=== PATIENT | female | born 1995 | race African-American/Black ===

== ENCOUNTER 2017-08-18 22:28 | Emergency (ER) | payer BC ==
[~2017-08-18] VITALS: Ht 167.6 cm; Wt 82.0 kg
[2017-08-18] MEDS ORDERED: ONDANSETRON HCL 4MG/2ML VIAL IV STA (23:00)
[2017-08-18] MEDS ORDERED: SODIUM CHLORIDE 0.9% 1,000 ML IV ONE (23:00)
[2017-08-18] MEDS ORDERED: KETOROLAC 30MG/ML VIAL IV STA (23:00)
[2017-08-18 23:38] LABS: EOSINOPHILS % 2.3 % (0.0-5.0); HEMATOCRIT. 30.6 % (36.0-48.0); LYMPHOCYTES % 32.4 % (20.0-50.0); MEAN CORPUSCULAR HEMOGLOBIN 25.4 pg (28.0-32.0); MEAN CORPUSCULAR VOLUME 77.9 fL (81.0-99.0); MONOCYTES % 5.6 % (2.0-8.0); NEUTROPHILS % 58.7 % (40.0-76.0); PLATELET 236 x1000/uL (130-400); RED BLOOD CELL COUNT 3.92 mill/uL (4.2-5.4); RED CELL DISTRIBUTION WIDTH 18.1 % (11.6-14.6)
[2017-08-18 23:42] LABS: CHLORIDE 110 mEq/L (98-107)
[2017-08-18 23:45] LABS: PROTHROMBIN TIME 10.6 sec (9.4-11.6)
[2017-08-18 23:50] LABS: CLARITY URINE CLEAR (CLEAR); COLOR URINE YELLOW (YELLOW); KETONES URINE NEGATIVE (NEGATIVE); LEUKOCYTE ESTERASE URINE NEGATIVE (NEGATIVE); NITRITE URINE NEGATIVE (NEGATIVE); OCCULT BLOOD URINE NEGATIVE (NEGATIVE); PH URINE 7.5 (4.5-8.0); PROTEIN URINE NEGATIVE (NEGATIVE); SPECIFIC GRAVITY URINE 1.013 (1.005-1.030); UROBILINOGEN URINE 0.2 E.U./dL (0.2-1.0)
[2017-08-18 23:52] LABS: CARBON DIOXIDE 24 mEq/L (21-32); ETHANOL BLOOD < 10 mg/dL
[2017-08-19 00:08] LABS: *AMPHETAMINES SCREEN URINE NEGATIVE (NEGATIVE); *BARBITURATES SCREEN URINE NEGATIVE (NEGATIVE); *COCAINE SCREEN URINE NEGATIVE (NEGATIVE); METHADONE URINE SCREEN NEGATIVE (NEGATIVE); OPIATES URINE SCREEN NEGATIVE (NEGATIVE); PHENCYCLIDINE URINE SCREEN NEGATIVE (NEGATIVE)
[2017-08-19 00:36] LABS: *BENZODIAZEPINES SCREEN URINE PRESUMTIVE POSITIVE (NEGATIVE); CANNABINOID URINE SCREEN PRESUMTIVE POSITIVE (NEGATIVE)
[2017-08-19 04:28] VITALS: BP 110/60
== END 2017-08-19 04:45 | disposition home or self-care (01) ==
LOC: ER 22:28
DX: R10.30 Lower abdominal pain, unspecified (principal); J45.909 Unspecified asthma, uncomplicated; F12.10 Cannabis abuse, uncomplicated; F13.10 Sedative, hypnotic or anxiolytic abuse, uncomplicated
CPT/HCPCS: 36415; 76830; 76856; 80053; 80305; 81003; 81025; 83690; 85025; 85610; 96361; 96374; 96375; 99285; G0482; J1885; J2405; J7030; Z7610

== ENCOUNTER 2020-05-12 21:58 | Emergency (ER) | payer BC, MEDICAID ==
[~2020-05-12] VITALS: Ht 167.6 cm; Wt 91.0 kg
[2020-05-12 22:11] VITALS: BP 127/73
[2020-05-13] MEDS ORDERED: BACITRACIN ZINC OINT UDPKT TOP ONE
[2020-05-13] MEDS ORDERED: TETANUS, DIPHTHERIA, PERTUSSIS VAC/PF 0.5ML (>7YR OLD) IM ONE
[2020-05-13] MEDS ORDERED: ACETAMINOPHEN 325MG TABLET PO ONE
== END 2020-05-13 01:06 | disposition home or self-care (01) ==
LOC: ER 21:58
DX: S61.411A Laceration without foreign body of right hand, initial encounter (principal); J45.909 Unspecified asthma, uncomplicated; F12.10 Cannabis abuse, uncomplicated; W26.0XXA Contact with knife, initial encounter; Y93.89 Activity, other specified; Y92.018 Other place in single-family (private) house as the place of occurrence of the external cause
CPT/HCPCS: 12002; 81025; 90471; 90715; 99283

== ENCOUNTER 2021-01-31 21:40 | Emergency (ER) | payer BC, MEDICAID ==
[~2021-01-31] VITALS: Ht 167.6 cm; Wt 96.0 kg
[2021-01-31] MEDS ORDERED: TRAMADOL 50MG TABLET PO ONE (22:30)
[2021-01-31] MEDS ORDERED: ACETAMINOPHEN 325MG TABLET PO ONE (22:30)
[2021-01-31] MEDS ORDERED: HYDR-4346 MT (23:48)
[2021-02-01 02:09] VITALS: BP 125/79
== END 2021-02-01 02:10 | disposition home or self-care (01) ==
LOC: ER 21:40
DX: S92.355A Nondisplaced fracture of fifth metatarsal bone, left foot, initial encounter for closed fracture (principal); J45.909 Unspecified asthma, uncomplicated; F12.10 Cannabis abuse, uncomplicated; W10.8XXA Fall (on) (from) other stairs and steps, initial encounter; Y93.89 Activity, other specified; Y92.018 Other place in single-family (private) house as the place of occurrence of the external cause
CPT/HCPCS: 29515; 73610; 73630; 99284; Z7610